=== PATIENT | male | born 2005 | race Two or more races ===

== ENCOUNTER 2025-01-08 23:29 | Emergency (ER) | payer BC, SELFPAY ==
[2025-01-08 23:32] VITALS: BP 154/102; PULSE 95; TEMP 36.3; O2SAT 99; BMI 35.3
--- NOTE | 2025-01-08 23:33 | XR_ITS ---
[facility] [id number] Patient Name: АННА MURRELL MRN: [id number] date: 2005 Sex: M Assigned Patient Location: ED.MAIN Current Patient Location: Accession/Order Number: [id number] Exam Date: 01/08/2025 23:35 Report Date: 01/09/2025 08:15 At the request of: NELL KONG MD Procedure: XR chest 1V Single view chest: CLINICAL HISTORY: cough COMPARISON: None FINDINGS: The heart is normal in size. The lungs are clear. The pulmonary vasculature is normal. Mediastinum and hilar regions are unremarkable. No pleural effusions are seen. Visualized bones are intact. XR/XR chest 1V IMPRESSION: NO ACUTE PROCESS. Impression dictated by: Eric Park Jr., D.OHussein 01/09/2025 8:15 AM Dictation Location: [facility] Electronically authenticated by: [id number] Y Date: 01/09/2025 08:15
--- NOTE | 2025-01-08 23:34 | ED_ITS ---
HPI HPI - General Adult General Chief complaint: Shortness of Breath/Dyspnea Stated complaint: Shortness Of Breath Time Seen by Provider: 01/08/25 23:33 Source: patient Mode of arrival: ambulance Limitations: no limitations History of Present Illness HPI narrative: 19-year-old male presents for cough. He has had it for about 10 days and has been coughing up some green phlegm. He states when he bends forward he gets more short of breath. He has an inhaler at home but has not used it in the past week. No fever or vomiting. Related Data Previous Rx's ?Medication ?Instructions ?Recorded azithromycin 250 mg tablet See Rx Instructions PO .COM PLEX #6 01/09/25 (Zithromax Z-Ashu) tabs benzonatate 100 mg capsule 100 mg PO TID PRN cough #20 caps 01/09/25 Allergies Allergy/AdvReac Type Severity Reaction Status Date / Time No Known Drug Allergies Allergy Verified 01/08/25 23:31 Review of Systems ROS Narrative A ten point review of systems is negative except as noted above. PFSH PFSH Social History Little interest or pleasure in doing things: not at all Feeling down, depressed, or hopeless: not at all Exam Narrative Exam Narrative: Nurses note and vital signs reviewed and patient is not hypoxic. General:The patient appears in no apparent distress.Patient has a harsh cough from time to time Skin:Warm, dry, no pallor noted.There is no rash noted. Head:Normocephalic, atraumatic Eye: Normal conjunctiva, no drainage Ears, Nose, Mouth, and Throat: oral mucosa is moist. Nares patent. Cardiovascular:Regular Rate and Rhythm Respiratory:Patient is in no distress, no accessory muscle use, lungs are clear to auscultation, no wheezing, rales or rhonchi Back:non-tender GI: Soft and nontender Musculoskeletal: The patient has no evidence of calf tenderness, no pitting edema, symmetrical pulses noted bilaterally Neurological:A&O, normal speech Psychiatric:Cooperative Constitutional Vital Signs, click to edit/add: Last Vital Signs Temp 97.4 F L 01/08/25 23:32 Pulse 94 H 01/08/25 23:59 Resp 16 01/08/25 23:59 BP 154/102 H 01/08/25 23:32 Pulse Ox 98 01/08/25 23:59 O2 Del Method Room Air 01/08/25 23:59 Course Vital Signs Vital signs: Vital Signs Temperature 97.4 F L 01/08/25 23:32 Pulse Rate 95 H 01/08/25 23:32 Respiratory Rate 18 01/08/25 23:32 Blood Pressure 154/102 H 01/08/25 23:32 Pulse Oximetry 99 01/08/25 23:32 Oxygen Delivery Method Room Air 01/08/25 23:32 Temperature 97.4 F L 01/08/25 23:32 Pulse Rate 94 H 01/08/25 23:59 Respiratory Rate 16 01/08/25 23:59 Blood Pressure 154/102 H 01/08/25 23:32 Pulse Oximetry 98 01/08/25 23:59 Oxygen Delivery Method Room Air 01/08/25 23:59 Medical Decision Making MDM Narrative Medical decision making narrative: Chest x-ray is negative on my interpretation. He has cough productive of green phlegm and was prescribed Tessalon and Zithromax. Treatment diagnosis and follow-up were discussed with the patient. Differential Diagnosis Differential Diagnosis: Pneumonia, URI Imaging Data Chest x-ray: My impression: No acute findings Discharge Plan Discharge Chief Complaint: Shortness of Breath/Dyspnea Clinical Impression: Upper respiratory infection Patient Disposition: Home, Self-Care Time of Disposition Decision: 00:15 Condition: Good Mode of Transportation: Private Vehicle Prescriptions / Home Meds: New benzonatate 100 mg capsule 100 mg PO TID PRN (Reason: cough) Qty: 20 0RF azithromycin [Zithromax Z-Ashu] 250 mg tablet See Rx Instructions .ROUTE .COMPLEX Qty: 6 0RF Rx Instructions: For 250 mg dose pack: take 500 mg today (day 1), then 250 mg for 4 days (days 2-5) Print Language: Tajik Instructions: Upper Respiratory Infection (ED) Referrals: DANIEL GONZALEZ [Primary Care Provider, Internal Medicine] - 1 week
[2025-01-08] MEDS: ALBUTEROL SULFATE 2.5 MG/3 ML VIAL NEB IH (23:57)
[2025-01-08 23:59] VITALS: PULSE 94; O2SAT 98
[2025-01-09 00:21] VITALS: BP 128/76; O2SAT 99
== END 2025-01-09 00:29 | disposition home or self-care (01) ==
PROVIDERS: Emergency Provider Emergency Medicine; PCP Internal Medicine
DX: J06.9 Acute upper respiratory infection, unspecified (principal)
CPT/HCPCS: 71045; 94640; 99283